=== PATIENT | male | born 1985 | race Native Hawaiian/Other Pacific Islander ===

== ENCOUNTER 2024-04-06 16:21 | Emergency (ER) | payer MEDICAID ==
[~2024-04-06] VITALS: Ht 188 cm; Wt 101.3 kg
[2024-04-06] MEDS ORDERED: AUG875T PO (17:23)
[2024-04-06] MEDS ORDERED: IBUP-1456 PO (17:23)
[2024-04-06] MEDS: IBUPROFEN 800 MG TAB PO ONE (17:24)
[2024-04-06] MEDS: cefTRIAXone SOD 1,000 MG VL IM ONE (17:24)
[2024-04-06 17:28] VITALS: BP 132/71; PULSE 79; RESP 18; TEMP 98.2; O2SAT 98
== END 2024-04-06 17:51 | disposition home or self-care (01) ==
LOC: ER 16:21
DX: H66.92 Otitis media, unspecified, left ear (principal); Z79.899 Other long term (current) drug therapy; Z79.1 Long term (current) use of non-steroidal anti-inflammatories (NSAID)
CPT/HCPCS: 96372; 99283; J0696